=== PATIENT | male | born 1940 | race Two or more races ===

== ENCOUNTER → 2022-07-28 | Outpatient (CLI) | payer OTHER ==
[~2022-07-28] MED LIST: MET25T PO; NIFE90TA49 PO
== END | disposition home or self-care (01) ==
LOC: LAB 06:45
PROVIDERS: ATTEND Internal Medicine
DX: N39.0 Urinary tract infection, site not specified (principal); A49.9 Bacterial infection, unspecified
CPT/HCPCS: 87086

== ENCOUNTER → 2022-11-23 | Outpatient (CLI) | payer OTHER ==
[~2022-11-23] MED LIST changes: -NIFE90TA49 PO; +NIFE90TA75 PO
[2022-11-23 06:59] LABS: Basophils # (auto) 0 10 ^3/uL (0-0.2); Basophils % (auto) 0.8 % (0.0-2.0); Eosinophils # (auto) 0.2 10 ^3/uL (0-0.8); Hematocrit 32.5 % (41.0-53.0); Lymphocytes # (auto) 1.6 10 ^3/uL (0.4-5.4); Lymphocytes % (auto) 34.8 % (10.0-50.0); Mean Corpuscular Hemoglobin 32.1 pg (28.0-32.0); Mean Corpuscular Volume 94.3 fL (80.0-100.0); Monocytes # (auto) 0.5 10 ^3/uL (0-1.3); Monocytes % (auto) 9.7 % (0.0-12.0); Neutrophils # (auto) 2.3 10 ^3/uL (1.6-8.6); Neutrophils % (auto) 49.7 % (37.0-80.0); Red Blood Cells 3.44 10^6/uL (4.5-5.90); Red Cell Distribution Width 13.9 % (11.8-14.3); White Blood Cell 4.7 10^3/uL (4.4-10.8)
[2022-11-23 07:06] LABS: Urine Bacteria NONE SEEN /hpf (None Seen); Urine Blood TRACE /uL (Negative); Urine Clarity Clear (Clear); Urine Color Yellow (Yellow); Urine Hyaline Cast FEW /lpf (0 - 2); Urine Protein, UAD 3+ (Negative); Urine Specific Gravity 1.012 (1.001-1.035); Urine Urobilinogen Normal (Negative); Urine WBC 1 /hpf (0 - 3)
[2022-11-23 08:17] LABS: Creatinine, Urine 103.73 mg/dL (30.0-125.0)
[2022-11-23 08:20] LABS: Alanine Aminotransferase 23 U/L (7-40); Albumin 3.6 g/dL (3.2-4.8); Alkaline Phosphatase 65 U/L (46-116); Aspartate Aminotransferase 22 U/L (13-40); BUN/Creatinine Ratio 8.4 (10.0-20.0); Blood Urea Nitrogen 11 mg/dL (9-23); Carbon Dioxide 26 mmol/L (20-30); Glucose 129 mg/dL (74-106); LDL Cholesterol 57 mg/dL (< 100); Triglycerides 69 mg/dL (< 150)
[2022-11-23 08:21] LABS: Bilirubin, Total 0.6 mg/dL (0.2-1.0); Cholesterol 122 mg/dL (< 200); HDL Cholesterol 51 mg/dL (40-59); Total Protein 6.4 g/dL (5.7-8.2)
[2022-11-23 09:15] LABS: Free T4 (Free Thyroxine) 1.07 ng/dL (0.89-1.76)
[2022-11-23 09:24] LABS: Anion Gap 8 (5-15); Chloride 109 mmol/L (98-107); Potassium 3.9 mmol/L (3.5-5.1); Sodium 143 mmol/L (136-145)
== END | disposition home or self-care (01) ==
LOC: LAB 06:16
PROVIDERS: ATTEND Internal Medicine
DX: I12.9 Hypertensive chronic kidney disease with stage 1 through stage 4 chronic kidney disease, or unspecified chronic kidney disease (principal); E11.22 Type 2 diabetes mellitus with diabetic chronic kidney disease; N18.2 Chronic kidney disease, stage 2 (mild); E66.9 Obesity, unspecified; E55.9 Vitamin D deficiency, unspecified; D64.9 Anemia, unspecified; E53.8 Deficiency of other specified B group vitamins
CPT/HCPCS: 36415; 80053; 80061; 81001; 82043; 82570; 82607; 83036; 84439; 84443; 85025

== ENCOUNTER 2022-12-06 11:41 | Inpatient (IN) | payer OTHER ==
[~2022-12-06] VITALS: Ht 182.9 cm; Wt 99.5 kg
[2022-12-06] VITALS (8 sets, daily range): BP systolic 162–191; BP diastolic 47–69; PULSE 47–69; RESP 12–16; TEMP 97.8–98.1; O2SAT 96–98
[2022-12-06] MEDS ORDERED: ONDANSETRON HCL 4 MG/2 ML VIAL IV PRN (13:15)
[2022-12-06] MEDS ORDERED: ATROPINE SULF 1 MG/10ml SYR IV PRN (13:15)
[2022-12-06] MEDS ORDERED: NITROGLYCERIN 0.4 MG SL TAB SL PRN (13:15)
[2022-12-06] MEDS ORDERED: MORPHINE SULFATE INJ 2 MG/ml SYRG IV PRN (13:15)
[2022-12-06 13:43] LABS: Basophils # (auto) 0 10 ^3/uL (0-0.2); Basophils % (auto) 0.7 % (0.0-2.0); Eosinophils # (auto) 0.2 10 ^3/uL (0-0.8); Eosinophils % (auto) 3.1 % (0.0-7.0); Hematocrit 31.1 % (41.0-53.0); Hemoglobin 10.6 g/dL (13.5-17.5); Lymphocytes # (auto) 1.5 10 ^3/uL (0.4-5.4); Lymphocytes % (auto) 24.2 % (10.0-50.0); Mean Corpuscular Hemoglobin 32.1 pg (28.0-32.0); Mean Corpuscular Hgb Conc. 34.1 g/dL (32.0-36.0); Mean Corpuscular Volume 94.3 fL (80.0-100.0); Monocytes # (auto) 0.6 10 ^3/uL (0-1.3); Monocytes % (auto) 9.7 % (0.0-12.0); Neutrophils # (auto) 3.8 10 ^3/uL (1.6-8.6); Neutrophils % (auto) 62.3 % (37.0-80.0); Nucleated Red Blood Cells % 0.1 %; Red Blood Cells 3.29 10^6/uL (4.5-5.90); Red Cell Distribution Width 14.1 % (11.8-14.3); White Blood Cell 6.2 10^3/uL (4.4-10.8)
[2022-12-06 14:01] LABS: Lactic Acid w/Reflex 2.5 mmol/L (0.4-2.0)
[2022-12-06 14:02] LABS: Alanine Aminotransferase 27 U/L (7-40); Albumin 3.1 g/dL (3.2-4.8); Alkaline Phosphatase 60 U/L (46-116); Anion Gap 5 (5-15); Aspartate Aminotransferase 19 U/L (13-40); BUN/Creatinine Ratio 12.9 (10.0-20.0); Bilirubin, Total 0.4 mg/dL (0.2-1.0); Blood Urea Nitrogen 20 mg/dL (9-23); Calcium 8.6 mg/dL (8.7-10.4); Carbon Dioxide 26 mmol/L (20-30); Chloride 109 mmol/L (98-107); Glucose 180 mg/dL (74-106); Magnesium 1.8 mg/dL (1.6-2.6); Potassium 3.7 mmol/L (3.5-5.1); Sodium 140 mmol/L (136-145); Total Protein 5.2 g/dL (5.7-8.2)
[2022-12-06 14:13] LABS: LDL Cholesterol 54 mg/dL (< 100); Triglycerides 57 mg/dL (< 150)
[2022-12-06 14:15] LABS: Cholesterol 124 mg/dL (< 200); HDL Cholesterol 55 mg/dL (40-59)
[2022-12-06 15:09] LABS: Urine Bacteria FEW /hpf (None Seen); Urine Blood Negative /uL (Negative); Urine Clarity Clear (Clear); Urine Color Colorless (Yellow); Urine Protein, UAD 2+ (Negative); Urine Specific Gravity 1.005 (1.001-1.035); Urine Urobilinogen Normal (Negative); Urine WBC 1 /hpf (0 - 3); Urine pH 5.5 (5.0-8.0)
[2022-12-06 15:23] LABS: Amphetamine Screen, Urine Neg (NEGATIVE)
[2022-12-06 15:24] LABS: Barbiturate Scree,Urine Neg (NEGATIVE); Benzodiazephine Screen, Urine Neg (NEGATIVE); Cannabinoid Screen, Urine Neg (NEGATIVE); Cocaine Screen, Urine Neg (NEGATIVE); Opiate Scree,Urine Neg (NEGATIVE); Phencyclidine Screen, Urine Neg (NEGATIVE)
[2022-12-06] MEDS: PANTOPRAZOLE 40 MG TAB PO SCH (16:56)
[2022-12-06] MEDS: TAMSULOSIN HYDROCHLORIDE 0.4 MG CAP PO SCH (16:56)
[2022-12-06] MEDS: CHOLECALCIFEROL (VITD3) 2,000 UNIT CAP/TAB PO SCH (16:57)
[2022-12-06] MEDS: CYANOCOBALAMIN 500 MCG TAB PO SCH (16:57)
[2022-12-06] MEDS: hydrALAZINE HCL 20 MG/ML VL IV PRN (18:40)
[2022-12-06] MEDS: ATORVASTATIN 20 MG TAB PO SCH (22:48)
[2022-12-06] MEDS ORDERED: CALCIUM GLUC 1,000mg/50ml-NS 50 ML IV ONE (23:30)
[2022-12-07] VITALS (14 sets, daily range): BP systolic 107–190; BP diastolic 49–76; PULSE 46–74; RESP 9–19; TEMP 97.8–98.2; O2SAT 95–98
[2022-12-07] MEDS: hydrALAZINE HCL 20 MG/ML VL IV PRN ×2 (02:18→13:22)
[2022-12-07] MEDS ORDERED: ENALAPRILAT 1.25 MG/ML-1ML VIAL IV ONE (03:30)
[2022-12-07 05:01] LABS: Basophils # (auto) 0.1 10 ^3/uL (0-0.2); Basophils % (auto) 1.3 % (0.0-2.0); Eosinophils # (auto) 0.3 10 ^3/uL (0-0.8); Eosinophils % (auto) 4.5 % (0.0-7.0); Hemoglobin 10.7 g/dL (13.5-17.5); Lymphocytes # (auto) 1.5 10 ^3/uL (0.4-5.4); Lymphocytes % (auto) 26.5 % (10.0-50.0); Mean Corpuscular Hemoglobin 32.5 pg (28.0-32.0); Mean Corpuscular Hgb Conc. 34.5 g/dL (32.0-36.0); Mean Corpuscular Volume 94.2 fL (80.0-100.0); Monocytes # (auto) 0.7 10 ^3/uL (0-1.3); Monocytes % (auto) 12.5 % (0.0-12.0); Neutrophils # (auto) 3.2 10 ^3/uL (1.6-8.6); Neutrophils % (auto) 55.2 % (37.0-80.0); Nucleated Red Blood Cells % 0.2 %; Red Blood Cells 3.29 10^6/uL (4.5-5.90); Red Cell Distribution Width 14.4 % (11.8-14.3); White Blood Cell 5.8 10^3/uL (4.4-10.8)
[2022-12-07 05:22] LABS: Alanine Aminotransferase 21 U/L (7-40); Albumin 2.8 g/dL (3.2-4.8); Alkaline Phosphatase 52 U/L (46-116); Anion Gap 5 (5-15); Aspartate Aminotransferase 17 U/L (13-40); BUN/Creatinine Ratio 9.2 (10.0-20.0); Bilirubin, Total 0.5 mg/dL (0.2-1.0); Blood Urea Nitrogen 11 mg/dL (9-23); Calcium 8.5 mg/dL (8.7-10.4); Carbon Dioxide 26 mmol/L (20-30); Chloride 112 mmol/L (98-107); Glucose 105 mg/dL (74-106); Magnesium 1.9 mg/dL (1.6-2.6); Potassium 3.8 mmol/L (3.5-5.1); Sodium 143 mmol/L (136-145); Total Protein 4.9 g/dL (5.7-8.2)
[2022-12-07] MEDS ORDERED: ATROPINE SULF 1 MG/10ml SYR IV PRN (07:45)
[2022-12-07] MEDS ORDERED: CALCIUM GLUC 1,000mg/50ml-NS 50 ML IV ONE ×2 (07:45→19:15)
[2022-12-07] MEDS ORDERED: ENOXAPARIN SOD 30 MG/0.3 ML SYRINGE SC SCH (10:00)
[2022-12-07] MEDS ORDERED: NIFEdipine ER 30 MG TAB PO SCH (10:00)
[2022-12-07] MEDS ORDERED: ENALAPRIL MALEATE 2.5 MG TAB PO SCH (10:00)
[2022-12-07] MEDS ORDERED: ACETAMINOPHEN 500 MG TAB PO PRN (10:00)
[2022-12-07] MEDS: ENOXAPARIN SOD 40 MG/0.4 ML SYRINGE SC SCH (10:21)
[2022-12-07] MEDS: CHOLECALCIFEROL (VITD3) 2,000 UNIT CAP/TAB PO SCH (10:21)
[2022-12-07] MEDS: TAMSULOSIN HYDROCHLORIDE 0.4 MG CAP PO SCH (10:22)
[2022-12-07] MEDS: PANTOPRAZOLE 40 MG TAB PO SCH (10:22)
[2022-12-07] MEDS: CYANOCOBALAMIN 500 MCG TAB PO SCH (10:22)
[2022-12-07] MEDS: ATORVASTATIN 20 MG TAB PO SCH (21:59)
[2022-12-07] MEDS: NIFEdipine ER 30 MG TAB PO SCH (22:08)
[2022-12-07] MEDS: ENALAPRIL MALEATE 10 MG TAB PO SCH (22:09)
[2022-12-08] VITALS (11 sets, daily range): BP systolic 144–171; BP diastolic 45–55; PULSE 53–75; RESP 10–19; TEMP 98–98.5; O2SAT 94–98
[2022-12-08 07:38] LABS: Basophils # (auto) 0.1 10 ^3/uL (0-0.2); Eosinophils # (auto) 0.2 10 ^3/uL (0-0.8); Eosinophils % (auto) 4.5 % (0.0-7.0); Hematocrit 31.5 % (41.0-53.0); Hemoglobin 10.6 g/dL (13.5-17.5); Lymphocytes # (auto) 1.4 10 ^3/uL (0.4-5.4); Lymphocytes % (auto) 27.6 % (10.0-50.0); Mean Corpuscular Hgb Conc. 33.5 g/dL (32.0-36.0); Mean Corpuscular Volume 95.5 fL (80.0-100.0); Monocytes # (auto) 0.7 10 ^3/uL (0-1.3); Monocytes % (auto) 12.8 % (0.0-12.0); Neutrophils # (auto) 2.8 10 ^3/uL (1.6-8.6); Neutrophils % (auto) 54.1 % (37.0-80.0); Nucleated Red Blood Cells % 0.1 %; Red Cell Distribution Width 14.5 % (11.8-14.3); White Blood Cell 5.2 10^3/uL (4.4-10.8)
[2022-12-08 07:57] LABS: Alanine Aminotransferase 19 U/L (7-40); Albumin 2.8 g/dL (3.2-4.8); Alkaline Phosphatase 48 U/L (46-116); Anion Gap 7 (5-15); Aspartate Aminotransferase 17 U/L (13-40); BUN/Creatinine Ratio 6.8 (10.0-20.0); Bilirubin, Total 0.8 mg/dL (0.2-1.0); Blood Urea Nitrogen 9 mg/dL (9-23); Calcium 8.7 mg/dL (8.5-10.1); Carbon Dioxide 26 mmol/L (20-30); Chloride 110 mmol/L (98-107); Glucose 106 mg/dL (74-106); Sodium 143 mmol/L (136-145); Total Protein 4.9 g/dL (5.7-8.2)
[2022-12-08] MEDS: TAMSULOSIN HYDROCHLORIDE 0.4 MG CAP PO SCH (08:18)
[2022-12-08] MEDS: ENALAPRIL MALEATE 10 MG TAB PO SCH ×2 (08:18→15:10)
[2022-12-08] MEDS: PANTOPRAZOLE 40 MG TAB PO SCH (08:18)
[2022-12-08] MEDS: NIFEdipine ER 30 MG TAB PO SCH ×2 (08:18→21:38)
[2022-12-08] MEDS: ENOXAPARIN SOD 40 MG/0.4 ML SYRINGE SC SCH (08:19)
[2022-12-08] MEDS: CHOLECALCIFEROL (VITD3) 2,000 UNIT CAP/TAB PO SCH (08:19)
[2022-12-08] MEDS: CYANOCOBALAMIN 500 MCG TAB PO SCH (08:19)
[2022-12-08] MEDS: hydrALAZINE HCL 20 MG/ML VL IV PRN (16:19)
[2022-12-08 18:42] LABS: Urine Bacteria NONE SEEN /hpf (None Seen); Urine Blood Negative /uL (Negative); Urine Clarity Clear (Clear); Urine Color Yellow (Yellow); Urine Protein, UAD 3+ (Negative); Urine Specific Gravity 1.012 (1.001-1.035); Urine Urobilinogen Normal (Negative); Urine WBC 2 /hpf (0 - 3); Urine pH 6.5 (5.0-8.0)
[2022-12-08] MEDS: ATORVASTATIN 20 MG TAB PO SCH (21:38)
[2022-12-09] VITALS (14 sets, daily range): BP systolic 141–154; BP diastolic 37–54; PULSE 53–86; RESP 10–20; TEMP 97.4–98.5; O2SAT 92–98
[2022-12-09 05:07] LABS: Basophils # (auto) 0 10 ^3/uL (0-0.2); Basophils % (auto) 0.6 % (0.0-2.0); Eosinophils # (auto) 0.2 10 ^3/uL (0-0.8); Eosinophils % (auto) 3.9 % (0.0-7.0); Hematocrit 29.8 % (41.0-53.0); Hemoglobin 10.1 g/dL (13.5-17.5); Lymphocytes # (auto) 1.5 10 ^3/uL (0.4-5.4); Mean Corpuscular Hemoglobin 32.1 pg (28.0-32.0); Mean Corpuscular Hgb Conc. 33.8 g/dL (32.0-36.0); Mean Corpuscular Volume 94.8 fL (80.0-100.0); Monocytes # (auto) 0.7 10 ^3/uL (0-1.3); Monocytes % (auto) 13.1 % (0.0-12.0); Neutrophils # (auto) 2.8 10 ^3/uL (1.6-8.6); Neutrophils % (auto) 54.4 % (37.0-80.0); Nucleated Red Blood Cells % 0.1 %; Red Blood Cells 3.14 10^6/uL (4.5-5.90); Red Cell Distribution Width 14.8 % (11.8-14.3); White Blood Cell 5.2 10^3/uL (4.4-10.8)
[2022-12-09 05:34] LABS: Alanine Aminotransferase 15 U/L (7-40); Albumin 2.7 g/dL (3.2-4.8); Alkaline Phosphatase 51 U/L (46-116); Anion Gap 4 (5-15); Aspartate Aminotransferase 14 U/L (13-40); Blood Urea Nitrogen 10 mg/dL (9-23); Calcium 8.1 mg/dL (8.7-10.4); Carbon Dioxide 26 mmol/L (20-30); Chloride 109 mmol/L (98-107); Glucose 117 mg/dL (74-106); Magnesium 1.7 mg/dL (1.6-2.6); Potassium 3.9 mmol/L (3.5-5.1); Sodium 139 mmol/L (136-145)
[2022-12-09 05:35] LABS: Bilirubin, Total 0.7 mg/dL (0.2-1.0); Total Protein 4.8 g/dL (5.7-8.2)
[2022-12-09 05:51] LABS: BUN/Creatinine Ratio 7.2 (10.0-20.0)
[2022-12-09] MEDS: PANTOPRAZOLE 40 MG TAB PO SCH (08:13)
[2022-12-09] MEDS: ENALAPRIL MALEATE 10 MG TAB PO SCH (08:14)
[2022-12-09] MEDS: CHOLECALCIFEROL (VITD3) 2,000 UNIT CAP/TAB PO SCH (08:14)
[2022-12-09] MEDS: CYANOCOBALAMIN 500 MCG TAB PO SCH (08:14)
[2022-12-09] MEDS: TAMSULOSIN HYDROCHLORIDE 0.4 MG CAP PO SCH (08:14)
[2022-12-09] MEDS: NIFEdipine ER 30 MG TAB PO SCH (08:15)
[2022-12-09] MEDS: ENOXAPARIN SOD 40 MG/0.4 ML SYRINGE SC SCH (08:15)
[2022-12-09] MEDS ORDERED: ASPirin 81 mg TAB PO SCH (10:00)
[2022-12-09] MEDS ORDERED: ENAL1TAB46 PO (10:18)
[2022-12-09] MEDS ORDERED: NIFE1TAB30 PO (10:18)
[2022-12-09] MEDS ORDERED: CYAN-17 PO (10:18)
[2022-12-09] MEDS ORDERED: ATO40T PO (10:18)
[2022-12-09] MEDS ORDERED: ASPI-325 PO (10:18)
[2022-12-09] MEDS ORDERED: CHOL1CAP47 PO (10:18)
== END 2022-12-09 11:00 | disposition home or self-care (01) | DRG 308 ==
LOC: ER 11:41 → TELE 13:23 → DOU IN ICU 18:13
PROVIDERS: ADMIT Internal Medicine Geriatric Medicine; ATTEND Internal Medicine Geriatric Medicine
DX: R00.1 Bradycardia, unspecified (principal); I50.33 Acute on chronic diastolic (congestive) heart failure; E44.0 Moderate protein-calorie malnutrition; I13.0 Hypertensive heart and chronic kidney disease with heart failure and stage 1 through stage 4 chronic kidney disease, or unspecified chronic kidney disease; N18.32 Chronic kidney disease, stage 3b; N40.0 Benign prostatic hyperplasia without lower urinary tract symptoms; Z96.652 Presence of left artificial knee joint; E78.5 Hyperlipidemia, unspecified; D64.9 Anemia, unspecified; K21.9 Gastro-esophageal reflux disease without esophagitis; I95.1 Orthostatic hypotension; I65.21 Occlusion and stenosis of right carotid artery; Z90.49 Acquired absence of other specified parts of digestive tract; Z68.29 Body mass index [BMI] 29.0-29.9, adult
CPT/HCPCS: 36415; 70450; 70551; 71045; 80053; 80061; 80307; 81001; 82306; 82533; 82607; 82746; 83540; 83550; 83605; 83615; 83735; 83880; 84443; 84484; 85025; 85045; 87081; 87086; 93005; 93306; 93886; 96365; 96367; 96372; 96375; 96376; G0378